=== PATIENT | male | born 1980 | race Caucasian/White ===

== ENCOUNTER 2022-03-28 23:06 | Inpatient (IN) ==
[2022-03-28] MEDS ORDERED: MoRPHine SULFATE 4 MG/ML 1 ML CARP\\VIAL IV STA (23:24)
[2022-03-28] MEDS ORDERED: ONDANSETRON INJ 2 MG/ML 2 ML VIAL IV STA (23:24)
[2022-03-28] MEDS ORDERED: SODIUM CHLORIDE 0.9% 1000ML 1,000 ML IV STA (23:24)
--- NOTE | 2022-03-28 23:26 | Emergency Department Note ---
Impression & Plan Acute cholecystitis ADMIT ED Provider Note HPI: The patient is a 41-year-old male who presents emergency department chief complaint of upper abdominal pain. Patient states the pain is acute in onset over the past 3 hours. States he has not had any previous issues with similar pain. Patient states the pain began after he ate a large meal. He arrives to the emergency department in moderate distress secondary to pain, states he has had several episodes of vomiting, he is otherwise hemodynamically stable, saturating well on room air. ROS: -GI: Upper abdominal pain *10 point review systems was conducted and is otherwise negative unless stated above *Outpatient medications and allergy history reviewed PE: General: Alert, NAD HEENT: Normocephalic, atraumatic Eyes: Extraocular eye movement is intact, no scleral erythema Pulmonary: Clear to auscultation bilaterally, no wheezing Cardio: Regular rate and rhythm GI: Abdomen is soft, there is tenderness in the upper abdomen to palpation : No suprapubic tenderness MSK: No evidence of trauma or malformation of the extremities, no edema Skin: No evidence of rash Neuro: Alert, no focal deficits Psychiatric: Cooperative monitoring manager: - An order was placed for continuous cardiac monitoring - Patient was noted to be in sinus rhythm with rate of 57 CT ABDOMEN & PELVIS With Contrast: Probable gallstone and sludge in gallbladder and gallbladder is distended. Consider correlation with ultrasound to evaluate for acute cholecystitis as clinically warranted. Normal appendix. No free air or free fluid. No bowel obstruction. Solid organs are unremarkable. Radiologist: Aldo Fountain MD Medical Decision Making: Patient presented to the emergency department with subacute onset upper abdominal pain, CT imaging was obtained and shows evidence of sludge in the gallbladder with distention. Combined with clinical exam where the patient is tender in the upper abdomen I do have concern for acute cholecystitis. Official read on ultrasound is pending. Patient does have a leukocytosis on lab work, no transaminitis. On my reassessment the patient continues to have some upper abdominal pain therefore was given an additional dose of morphine. Blood cultures were drawn x2, patient was given a dose of IV ceftriaxone. Patient was assessed at the bedside by the surgical midlevel provider, JORGE Keith, and the patient will be admitted to the surgical service under the attending, Dr. Montaño, for definitive management. Diagnosis: 1. Acute onset abdominal pain 2. Acute cholecystitis 3. Leukocytosis Disposition: Admission Byron DO [facility] Past Med/Surg History Social History Smoking Status: Current every day smoker Tobacco Type: Cigarettes and E-cigarettes / Vaping Preferred Language: Citizen Of [place] Feels Safe at Home: Yes Allergies Allergies Allergy/AdvReac Type Severity Reaction Status Date / Time No Known Allergies Allergy Verified 03/29/22 00:03 Home Meds Home Medications Medication Instructions Recorded Confirmed No Known Home Medications 03/29/22 03/29/22 Results & Data (ED) Vital Signs Vital Signs - 24 hr 03/28/22 23:09 03/29/22 02:33 03/29/22 03:00 Temperature 35.4 C L Temperature Source Temporal Artery Scan Pulse Rate 70 64 58 L Respiratory Rate 22 19 14 Respiratory Effort / Characteristics Non-Labored Spontaneous Respiratory Depth Normal Respiratory Pattern Regular Blood Pressure 142/91 H Blood Pressure Mean 108 Blood Pressure Position Sitting Pulse Oximetry 98 97 98 Oxygen Delivery Method Room Air Nasal Cannula Room Air Sepsis Recent Fever Within 48 Hours No Sepsis New/Unexplained Change in Mental Status N/A Sepsis Action Taken by Nursing No Action Required Laboratory Data Result diagrams: 03/29/22 00:10 03/29/22 00:10 Lab Results 03/29/22 03/29/22 Range/Units 00:10 00:10 WBC 13.55 H (4.8-10.8) K/uL RBC 5.33 (4.7-6.1) M/uL Hgb 16.1 (14.0-18.0) g/dL Hct 44.2 (42-52) % MCV 82.9 (80-100) fL MCH 30.2 (25-34) pg MCHC 36.4 H (32-36) g/dL RDW Std Deviation 37.9 (36.4-46.3) fL RDW Coeff of Carito 12.6 (11.5-14.5) % Plt Count 280 (130-400) K/uL MPV 10.3 (7.4-10.4) fL Immature Gran % (Auto) 0.1 % Neut % (Auto) 87.7 % Lymph % (Auto) 6.0 % Deuel % (Auto) 5.5 % Eos % (Auto) 0.5 % Baso % (Auto) 0.2 % Neut # (Auto) 11.88 H (1.4-6.5) K/uL Lymph # (Auto) 0.81 L (1.2-3.4) K/uL Deuel # (Auto) 0.74 H (0.11-0.59) K/uL Eos # (Auto) 0.07 (0-0.5) K/uL Baso # (Auto) 0.03 (0-0.2) K/uL Immature Gran # (Auto) 0.02 (0.00-0.02) K/uL Sodium 140 (136-145) mmol/L Potassium 3.4 L (3.5-5.1) mmol/L Chloride 102 (98-107) mmol/L Carbon Dioxide 26 (21-32) mmol/L Anion Gap 12 H (3-11) BUN 18 (6-23) mg/dl Creatinine 1.05 (0.6-1.4) mg/dl Est Cr Clr Drug Dosing 95.6 ml/min Est GFR ( Amer) 101.7 ml/min Est GFR (Non-Af Amer) 87.7 ml/min BUN/Creatinine Ratio 17.1 (10-20) Glucose 103 H (70-99(Fasting)) mg/dl Calcium 9.4 (8.5-10.1) mg/dl Total Bilirubin 0.4 (0.2-1.0) mg/dl AST 16 (13-39) U/L ALT 16 (7-52) U/L Alkaline Phosphatase 61 (34-104) U/L Total Protein 7.4 (6.0-8.3) gm/dl Albumin 4.5 (3.4-5.0) gm/dl Globulin 2.9 (2.5-4.0) gm/dl Albumin/Globulin Ratio 1.6 (0.9-2) Lipase 37 (11-82) U/L Administered Medications Discontinued Medications Sodium Chloride (Nss 1000ml) 1,000 mls @ 999 mls/hr IV .Q1H1M STA Stop: 03/29/22 00:24 Last Infusion: 03/29/22 01:22 Dose: 0 mls/hr Documented by: [id number] Admin: 03/29/22 00:15 Dose: 999 mls/hr Documented by: [id number] Ioversol (Optiray 320 100ml) 93 ml IV ONCE ONE Stop: 03/29/22 01:07 Last Admin: 03/29/22 01:06 Dose: 93 ml Documented by: [id number] Morphine Sulfate (Morphine Sulfate 4 Mg/Ml 1 Ml Carp\Vial) 4 mg IV NOW STA Stop: 03/28/22 23:25 Last Admin: 03/29/22 00:17 Dose: 4 mg Documented by: [id number] Morphine Sulfate (Morphine Sulfate 4 Mg/Ml 1 Ml Carp\Vial) 4 mg IV NOW STA Stop: 03/29/22 03:33 Last Admin: 03/29/22 03:52 Dose: 4 mg Documented by: [id number] Ondansetron HCl (Ondansetron Inj 2 Mg/Ml 2 Ml Vial) 4 mg IV NOW STA Stop: 03/28/22 23:25 Last Admin: 03/29/22 00:17 Dose: 4 mg Documented by: [id number] Discharge Plan Visit Data Chief Complaint: Back Injury/Pain Stated Complaint: YELLOW VOMIT, BROWN URINE, BACK PAIN ED Provider: Byron Mejia Discharge Problem: Acute cholecystitis Forms Stand Alone Forms: [facility] Prescriptions Prescriptions: No Action No Known Home Medications RF: 0 Referrals Referrals: PCP,NO [Primary Care Provider] -
[2022-03-29 00:22] LABS: Basophils # (auto) 0.03 K/uL (0-0.2); Basophils % (auto) 0.2 %; Eosinophils # (auto) 0.07 K/uL (0-0.5); Eosinophils % (auto) 0.5 %; Hematocrit (blood only) 44.2 % (42-52); Hemoglobin 16.1 g/dL (14.0-18.0); Immature Granulocytes # (auto) 0.02 K/uL (0.00-0.02); Immature Granulocytes % (auto) 0.1 %; Lymphocytes # (auto) 0.81 K/uL (1.2-3.4); Mean Corpuscular Hemoglobin 30.2 pg (25-34); Mean Corpuscular Hgb Conc 36.4 g/dL (32-36); Mean Corpuscular Volume 82.9 fL (80-100); Mean Platelet Volume 10.3 fL (7.4-10.4); Monocytes # (auto) 0.74 K/uL (0.11-0.59); Monocytes % (auto) 5.5 %; Neutrophils # (auto) 11.88 K/uL (1.4-6.5); Neutrophils % (auto) 87.7 %; Platelet Count 280 K/uL (130-400); RDW Coefficient of Variation 12.6 % (11.5-14.5); RDW Standard Deviation 37.9 fL (36.4-46.3); Red Blood Count 5.33 M/uL (4.7-6.1); White Blood Count 13.55 K/uL (4.8-10.8)
[2022-03-29 00:37] LABS: Albumin Globulin Ratio 1.6 (0.9-2); Albumin Level 4.5 gm/dl (3.4-5.0); BUN Creatinine Ratio 17.1 (10-20); Bilirubin,Total 0.4 mg/dl (0.2-1.0); Calcium 9.4 mg/dl (8.5-10.1); Creatinine Clr Calc Pharmacy 95.6 ml/min; Est GFR (African American) 101.7 ml/min; Est GFR (Non-African American) 87.7 ml/min; Globulin 2.9 gm/dl (2.5-4.0); Potassium 3.4 mmol/L (3.5-5.1); Total Protein 7.4 gm/dl (6.0-8.3)
[2022-03-29] MEDS ORDERED: OPTIRAY 320 100ml IV ONE (01:06)
[2022-03-29] MEDS ORDERED: cefTRIAXone SODIUM 2,000 MG/70 ML BAG IV STA (03:32)
[2022-03-29] MEDS ORDERED: MoRPHine SULFATE 4 MG/ML 1 ML CARP\\VIAL IV STA (03:32)
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
[2022-03-29] MEDS ORDERED: ACETAMINOPHEN 1,000 MG/100 ML VIAL IV PRN (04:07)
[2022-03-29] MEDS ORDERED: ONDANSETRON INJ 2 MG/ML 2 ML VIAL IV PRN ×2 (04:07→11:22)
[2022-03-29] MEDS: MoRPHine SULFATE 4 MG/ML 1 ML CARP\\VIAL IV PRN ×2 (05:46→09:00)
[2022-03-29] MEDS: POTASSIUM CHLORIDE 10 MEQ in LACTATED RINGER'S 1,000 ML IV SCH ×2 (05:49→16:24)
[2022-03-29] MEDS ORDERED: cefTRIAXone SODIUM 1,000 MG in DEXTROSE 5% 50 ML IV SCH (05:49)
--- NOTE | 2022-03-29 06:40 | XRay Report ---
XR chest 1V portable HISTORY: 41 years-old Male pre-op preoperative exam. No acute chest complaints COMPARISON: None TECHNIQUE: Portable AP view of the chest FINDINGS: The cardiomediastinal and hilar silhouettes are within normal limits. No pneumothorax, pleural effusi on, airspace consolidation or overt pulmonary edema. Mild reticular nodular opacities of the lung bas es are better seen on the CT abdomen pelvis study of same day. The bones of the chest appear grossly intact. IMPRESSION: No acute process. ACT 112: Negative or not required by law. The above report was generated using voice recognition software. It may contain grammatical, syntax o r spelling errors. Electronically signed by: William Weinstein M.D. 03/29/2022 6:38 AM
[2022-03-29] MEDS ORDERED: PROPOFOL IV EMULSION 10 MG/ML 100 ML VIAL IV ONE ×2 (07:30→11:59)
--- NOTE | 2022-03-29 07:34 | Ultrasound Report ---
US gallbladder CLINICAL HISTORY: Right upper quadrant abdominal pain. COMPARISON STUDY: CT of the abdomen and pelvis performed earlier today. FINDINGS: Liver is sonographically normal. Caliber of the common bile duct is at the upper limits of normal, measuring 6 mm. Pancreatic body is normal. Head and tail are obscured by overlying bowel gas. Gallstones within the gallbladder are noted, including a stone within the gallbladder neck versus cy stic duct. Positive sonographic Gunter sign was elicited. In addition, there is sludge within the gal lbladder. Comet tail artifact originating from the gallbladder wall is noted. This favors adenomyomat osis. Gallbladder is mildly distended. There is no right hydronephrosis. IMPRESSION: Cholelithiasis, including stones within the gallbladder neck versus cystic duct and posi tive sonographic Gunter sign. These findings are suggestive of acute cholecystitis. ACT 112: Negative or not required by law. Electronically signed by: Fernando Hsu M.D. 03/29/2022 7:33 AM
--- NOTE | 2022-03-29 07:53 | CT Scan Report ---
CT OF THE ABDOMEN AND PELVIS WITH CONTRAST CLINICAL HISTORY: Acute Upper abdominal pain x 3 hours. COMPARISON STUDY: None. TECHNIQUE: Following IV administration of 93 mL of Optiray, axial images of the abdomen and pelvis we re obtained from the lung bases to the proximal femurs. Images were reviewed in the axial, sagittal, and coronal planes. IV contrast was administered without complication. Automated exposure control wa s utilized for the study. A dose lowering technique was utilized adhering to the principles of ALARA . CT DOSE: 335.56 mGy.cm FINDINGS: Note is made of multiple small noncalcified solid nodules within the lower lungs. These are indeterminate although probably benign. No pneumatosis, free air or portal venous gas is present. Th ere is layering hyperdense material within the gallbladder. This contains a hypodense focus. These fa vor gallstones. There is trace pericholecystic stranding. In addition, the gallbladder is mildly dist ended and distorts the abdominal wall. No biliary ductal dilatation is present. There are no hepatic lesions. Spleen, adrenal glands, kidneys and pancreas are unremarkable. No evidence for a bowel obstr uction. The appendix is normal. Moderate amount stool within the colon and rectum is present. There i s no lymphadenopathy. Major vasculature is patent. IMPRESSION: Cholelithiasis, mild gallbladder distention and trace pericholecystic stranding. In virgil tion, the gallbladder fundus distorts the gallbladder wall suggestive of tensile gallbladder fundus s ign. These findings favor acute cholecystitis. ACT 112: Negative or not required by law. Electronically signed by: Fernando Hsu M.D. 03/29/2022 7:52 AM
--- NOTE | 2022-03-29 11:21 | Anesthesiology Consultation ---
Date of Service March 29, 2022 Assessment & Plan Chart Review Chart Review: Acceptable Risk for Surgery Consults Requested none ASA ASA2 Proposed Anesthesia Anesthesia Type: General Risk / Benefits Reviewed With: PT / POA / Parent / Guardian, Accepts Plan and Informed Consent Obtained History Surgery Operation Date: 03/29/22 10:35 Proposed Procedures p Laparoscopic Cholecystectomy - Ramesh Montaño DO Height/Weight Height: 5 ft 10 in Weight: 74.5 kg Allergies Allergy/AdvReac Type Severity Reaction Status Date / Time No Known Allergies Allergy Verified 03/29/22 00:03 Medications Home Medications Medication Instructions Recorded Confirmed Last Taken No Known Home Medications 03/29/22 03/29/22 Unknown Active Medications Generic Name Dose Route Start Last Admin Trade Name Freq PRN Reason Stop Dose Admin Potassium Chloride 10 meq/ 1,005 mls @ 125 mls/hr 03/29/22 04:15 03/29/22 05:49 Lactated Ringer's IV 04/28/22 04:14 125 mls/hr .Q8H3M [facility] Administration Morphine Sulfate 3 mg 03/29/22 04:07 03/29/22 09:00 Morphine Sulfate 4 Mg/Ml 1 Ml Carp\Vial IV 04/12/22 04:06 3 mg Q3H PRN Administration Pain Ondansetron HCl 4 mg 03/29/22 04:07 03/29/22 04:32 Ondansetron Inj 2 Mg/Ml 2 Ml Vial IV 04/28/22 04:06 4 mg Q6H PRN Administration Nausea And Vomiting NPO Date Last Intake of Fluids: 03/28/22 Time Last Intake of Fluids: 18:00 Last Intake of Fluids Comment: As pt. reported Date Last Intake of Solids: 03/28/22 Time Last Intake of Solids: 18:00 Last Intake of Solids Comment: As pt. reported Past Medical History Medical History (Updated 03/29/22 @ 11:35 by Veronica Woodward DO) Anxiety cousin with malignant hyperthermia Exercise / Class Metabolic Activity II 4-5 Yardwork/Stairs/Walk up hill Past Surgical History Surgical History (Updated 03/29/22 @ 11:35 by Veronica Woodward DO) H/O lymph node excision History of foot surgery X7 Past Anesthesia History No Hx of Anesthesia Complications and Malignant Hyperthermia (Cousin) History of PONV No Hx of PONV and No Hx of Motion Sickness Social History Smoking Status: Current every day smoker tobacco type: cigarettes Smoking cigarettes per day: 1/2 pack Do You Dip or Chew Tobacco: No Hx Alcohol Use: No Hx Substance Use: Yes substance use type: marijuana Last Used Substance: Days (ago) Last Used Substance Other:: 3 days ago; smokes marijuana occasionally Physical Exam Vital Signs Last Vital Signs Temp 37.1 C 03/29/22 07:34 Pulse 71 03/29/22 07:34 Resp 18 03/29/22 07:34 BP 128/80 03/29/22 07:34 Pulse Ox 98 03/29/22 07:34 ENMT Mouth: + dental restorations (Upper implant posts) and + edentulous; no TMJ abnormality Thyromental Distance: > or= 3.5 Finger Breadths Mallampati Class: II Neck normal visual inspection and trachea midline; neck extension not limited Respiratory normal respiratory effort Auscultation: lungs clear to auscultation bilaterally Cardiovascular Rate/Rhythm: regular rate and regular rhythm Heart Sounds: no murmur Musculoskeletal Spine: normal cervical ROM Extremities: full ROM of extremities Neurologic moves all extremities Psychiatric Orientation: alert and oriented x 3 anxious Testing Laboratory Results 03/29/22 00:10 03/29/22 00:10
[2022-03-29] MEDS ORDERED: ePHEDrine sulfate 50 MG/ML AMP IV PRN (11:22)
[2022-03-29] MEDS ORDERED: MoRPHine SULFATE 10 MG/ML CARP/VIAL IV PRN (11:22)
[2022-03-29] MEDS ORDERED: MEPERIDINE HCL 25 MG/ML CARP/VIAL IV PRN (11:22)
[2022-03-29] MEDS ORDERED: ATROPINE SULFATE 0.1 MG/ML 10ML SYR IV PRN (11:22)
[2022-03-29] MEDS ORDERED: MIDAZOLAM HCL 1 MG/ML 2ML VIAL ONE (12:09)
[2022-03-29] MEDS ORDERED: fentaNYL citrate 100 MCG/2 ML VIAL ONE ×2 (12:09)
--- NOTE | 2022-03-29 13:03 | Electrocardiogram Report ---
Test Reason : Blood Pressure : / mmHG Vent. Rate : 059 BPM Atrial Rate : 059 BPM P-R Int : 150 ms QRS Dur : 070 ms QT Int : 426 ms P-R-T Axes : 018 036 044 degrees QTc Int : 421 ms Poor data quality, interpretation may be adversely affected Sinus bradycardia Otherwise normal ECG No previous ECGs available Confirmed by Amos Delgado ([id number]) on 03/29/2022 1:03:31 PM Referred By: REFERRED SELF Confirmed By:Baljinder Delgado
[2022-03-29] MEDS ORDERED: BUPIVACAINE 0.5 % 5 MG/1 ML MPF 30ML VIAL ONE (13:21)
[2022-03-29] MEDS ORDERED: EPINEPHrine INJ 1 MG/ML AMP ONE (13:21)
[2022-03-29] MEDS ORDERED: HYDROmorphone INJ 2 MG/ML SYR/VIAL ONE (13:42)
[2022-03-29] MEDS ORDERED: KETOROLAC 30 MG/ML VIAL ONE (13:48)
[2022-03-29] MEDS ORDERED: LARYING-O-JET KIT (LTA) ONE (13:48)
[2022-03-29] MEDS ORDERED: DEXAMETHASONE SOD INJ 4 MG/ML VIAL ONE (13:48)
[2022-03-29] MEDS ORDERED: ROCURONIUM BROMIDE 10 MG/ML 5 ML VIAL IV ONE (13:48)
[2022-03-29] MEDS ORDERED: NEOSTIGMINE METHYLSULFATE 1 MG/ML 10ML VIAL ONE (13:48)
[2022-03-29] MEDS ORDERED: ONDANSETRON INJ 2 MG/ML 2 ML VIAL ONE (13:48)
[2022-03-29] MEDS ORDERED: PROPOFOL IV EMULSION 10 MG/ML 20 ML VIAL IV ONE (13:48)
[2022-03-29] MEDS ORDERED: GLYCOPYRROLATE 0.2 MG/ML VIAL ONE (13:48)
[2022-03-29] MEDS ORDERED: LIDOCAINE 2% 2 ML VIAL/AMP(20MG/ML) INFIL ONE (13:48)
--- NOTE | 2022-03-29 14:13 | Operative Report ---
PG Post Operative Report Pre & Post Diagnosis Operation Date: 03/29/22 10:35 Pre-Op Diagnosis: Cholecystits Post-Op Diagnosis: Cholecystits I identified the patient and participated in the time-out.: Yes Procedure Operation Date: 03/29/22 10:35 Actual Procedures p Laparoscopic Cholecystectomy - Ramesh Montaño DO Surgeon Ramesh Montaño DO Self Pay Representative amparo Yuen Estimated Blood Loss 15 Findings Consistent with Post-Op Diagnosis Specimens gallbladder Description of Procedure After informed consent was obtained the patient was taken to the operating room and placed in the supine position. After successful intubation the abdomen was sterilely prepped and draped in usual fashion. A periumbilical incision was made with an 11 blade scalpel and carried down through the soft tissue using electrocautery. The anterior rectus fascia was opened using electrocautery and 2 #0 Vicryl stay sutures were placed. The peritoneum was elevated with hemostats and incised under direct vision using Metzenbaum scissors. A finger sweep was performed and a 12 mm Robb trocar was placed. The abdomen was insufflated to 18 mmHg. The laparoscope was inserted and the abdomen was examined in 360. The gallbladder was acutely inflamed. Other than that, no gross abnormalities were identified. A subxiphoid 5 mm port and 2 right upper quadrant 5 mm ports were placed under direct vision. The patient was placed in a reverse Trendelenburg position and slightly airplaned to the left. The gallbladder was too inflamed to grasp. Therefore I used a gallbladder needle and drained about 20 cc of thick black bile. Once it was decompressed, the gallbladder was grasped and elevated superiorly and laterally. A [place] dissector was used to take down adhesions around the neck of the gallbladder. The cystic duct was identified and skeletonized. It was clipped twice proximally and once distally and transected using a laparoscopic scissor. In similar fashion the cystic artery was identified and skeletonized clipped and divided. There was also a posterior branch that was clipped and divided as well. The gallbladder was removed from the gallbladder fossa with electrocautery. It was placed into an Endo Catch bag. Thorough irrigation was performed. At the end of the procedure there was adequate hemostasis and no evidence of any bile leaks. A final look around the abdomen showed no other abnormalities. The gallbladder and trochars were all removed and the abdomen was desufflated. The fascia of the camera port was closed using 0 Vicryl in a [id number] fashion. All the wounds were irrigated and closed using 4-0 Monocryl. Marcaine was injected around them for postoperative analgesia and skin glue used as a dressing. The patient was awakened, extubated and transferred to recovery in stable condition. My physician's special events assistant was present throughout the entire case... helped with prepping the patient. With exposure for trocar placement, as well as retracted the gallbladder throughout the case and also assisted with wound closure and dressing placement. I attest to the content of the Intraoperative Record and any orders documented therein. Any exceptions are noted below.
[2022-03-29] MEDS: fentaNYL citrate 100 MCG/2 ML VIAL IV PRN ×4 (14:25→14:40)
--- NOTE | 2022-03-29 14:50 | Anesthesiology Progress Note ---
Date of Service March 29, 2022 Anesthesia Post Procedure Vital Signs Vital Signs: Temp Pulse Pulse Pulse Resp BP BP 03/29/22 14:18 36 C L 64 18 127/86 03/29/22 11:36 37.5 C 68 18 124/76 03/29/22 07:34 37.1 C 71 18 128/80 03/29/22 05:35 37.3 C 58 L 16 125/76 03/29/22 05:00 69 13 138/82 03/29/22 04:00 64 16 130/82 03/29/22 03:00 58 L 14 142/91 H 03/29/22 02:33 64 19 03/28/22 23:24 03/28/22 23:09 35.4 C L 70 22 Pulse Ox 03/29/22 14:18 99 03/29/22 11:36 95 03/29/22 07:34 98 03/29/22 05:35 99 03/29/22 05:00 96 03/29/22 04:00 96 03/29/22 03:00 98 03/29/22 02:33 97 03/28/22 23:24 96 03/28/22 23:09 98 Pain Intensity Right Abdomen: Pain Intensity: 9 Abdomen: Pain Intensity: 9 Transfer of Care Handoff Completed per policy Notes Mental Status: alert / awake / arousable Patient Amnestic to Procedure: Yes Nausea / Vomiting: adequately controlled Pain: adequately controlled Airway Patency, RR, SpO2: stable & adequate BP & HR: stable & adequate Hydration State: stable & adequate Anesthetic Complications: no major complications apparent and Pt Satisfied with anesthetic care
[2022-03-29] MEDS ORDERED: cefTRIAXone SODIUM 2,000 MG in DEXTROSE 5% 50 ML IV SCH (15:00)
[2022-03-29] MEDS ORDERED: oxyCODONE/ACETAMINOPHEN 5mg/325mg TAB PO PRN ×2 (15:28)
[2022-03-29] MEDS ORDERED: MoRPHine SULFATE 4 MG/ML 1 ML CARP\\VIAL IV PRN (15:28)
[2022-03-29] MEDS ORDERED: MoRPHine SULFATE 2 MG/ML CARP IV PRN (15:28)
== END 2022-03-29 18:49 | disposition home or self-care (01) | DRG 419 ==
LOC: ED 23:06 → 3E 03-29 04:07
DX: K81.0 Acute cholecystitis; F17.210 Nicotine dependence, cigarettes, uncomplicated; Z84.89 Family history of other specified conditions